=== PATIENT | male | born 1995 | race Asian ===

== ENCOUNTER → 2017-01-31 | Outpatient (CLI) | payer OTHER ==
[~2017-01-31] MED LIST: BACT2OIN TOP; BENEPOW5 OR; FISH1000 PO; HIBI4LIQ TOP; MONT10TA2 PO; MONT10TA4 PO; MUPI2%T TOPICAL; MUPI2CRE3 TOPICAL; MUPI2OIN TOPICAL; [UNRECOGNIZED DRUG - CODE] TOP; [UNRECOGNIZED DRUG - CODE] TOPICAL
[2017-01-31 09:02] LABS: ALKALINE PHOSPHATASE 94 U/L (45-117); ALT (GPT) 66 U/L (12-78); ANION GAP 5 MEQ/L (5-15); AST (GOT) 29 U/L (15-37); BICARBONATE 32.3 MEQ/L (21.0-32.0); BLOOD UREA NITROGEN 10 MG/DL (7-18); CHLORIDE 104 MEQ/L (98-107); GLOMERULAR FILTRATION RATE 108 ML/MIN (>89); GLUCOSE,FASTING 95 MG/DL (74-99); HDL CHOLESTEROL 43.8 MG/DL (40.0-60.0); LDL CHOLESTEROL 118 MG/DL (0-99); POTASSIUM 4.1 MEQ/L (3.5-5.1); SODIUM (NA) 141 MEQ/L (136-145); TOTAL BILIRUBIN ADULT 0.4 MG/DL (0.2-1.0)
== END ==
LOC: CLAB 08:02
PROVIDERS: ATTEND Family Medicine
DX: E78.00 Pure hypercholesterolemia, unspecified (principal)
CPT/HCPCS: 36415; 80053; 80061

== ENCOUNTER → 2018-02-12 | Outpatient (CLI) | payer OTHER ==
[~2018-02-12] MED LIST changes: -BACT2OIN TOP; -BENEPOW5 OR; -FISH1000 PO; -HIBI4LIQ TOP; -MONT10TA2 PO; -MUPI2%T TOPICAL; -MUPI2CRE3 TOPICAL; +[UNRECOGNIZED DRUG - CODE]; -[UNRECOGNIZED DRUG - CODE] TOP
[2018-02-12 08:34] LABS: AUTOMATED NEUTROPHIL # 2.1 TH/MM3 (1.8-7.7); BASOPHIL # 0.1 TH/MM3 (0-0.2); BASOPHIL % 1.4 % (0.0-2.0); EOSINOPHIL # 0.1 TH/MM3 (0-0.4); EOSINOPHIL % 2.1 % (0.0-4.0); HEMATOCRIT 43.5 % (39.0-51.0); HEMOGLOBIN 14.7 GM/DL (13.0-17.0); LYMPH % 34.4 % (9.0-44.0); LYMPHOCYTE # 1.4 TH/MM3 (1.0-4.8); MEAN CELL VOLUME 97.3 FL (80.0-100.0); MEAN CORPUSCULAR HEMOGLOBIN 32.9 PG (27.0-34.0); MEAN CORPUSCULAR HGB CONC 33.9 % (32.0-36.0); MEAN PLATELET VOLUME 7.9 FL (7.0-11.0); MONO % 11.1 % (0.0-8.0); MONOCYTE # 0.4 TH/MM3 (0-0.9); PLATELET COUNT 336 TH/MM3 (150-450); RED BLOOD COUNT 4.47 MIL/MM3 (4.50-5.90); RED CELL DISTRIBUTION WIDTH 12.8 % (11.6-17.2)
[2018-02-12 08:58] LABS: ALBUMIN 3.6 GM/DL (3.4-5.0); AST (GOT) 28 U/L (15-37); BICARBONATE 29.9 MEQ/L (21.0-32.0); BLOOD UREA NITROGEN 11 MG/DL (7-18); CALCIUM 8.8 MG/DL (8.5-10.1); CHLORIDE 104 MEQ/L (98-107); CHOLESTEROL 189 MG/DL (120-200); CREATININE 0.91 MG/DL (0.60-1.30); GLOMERULAR FILTRATION RATE 103 ML/MIN (>89); GLUCOSE,FASTING 97 MG/DL (74-99); SODIUM (NA) 140 MEQ/L (136-145); TRIGLYCERIDES 105 MG/DL (42-150)
[2018-02-12 09:09] LABS: ALKALINE PHOSPHATASE 97 U/L (45-117); ALT (GPT) 51 U/L (12-78); CHOLESTEROL/ HDL RATIO 4.44 RATIO; HDL CHOLESTEROL 42.5 MG/DL (40.0-60.0); LDL CHOLESTEROL 126 MG/DL (0-99); TOTAL BILIRUBIN ADULT 0.4 MG/DL (0.2-1.0); TOTAL PROTEIN 8.3 GM/DL (6.4-8.2)
== END ==
LOC: CLAB 08:04
PROVIDERS: ATTEND Family Medicine
DX: Q90.9 Down syndrome, unspecified (principal)
CPT/HCPCS: 36415; 80053; 80061; 84443; 85025